=== PATIENT | female | born 1980 | race American Indian/Alaskan Native ===

== ENCOUNTER 2019-09-20 19:44 | Inpatient (IN) | payer OTHER ==
[~2019-09-20] VITALS: Ht 157.5 cm; Wt 97.8 kg
[2019-09-20 20:18] LABS: BASOPHILS ABSOLUTE AUTO 0.05 K/mm3 (0.00-0.23); BASOPHILS PERCENT AUTO 1 % (0-2); EOSINOPHILS ABSOLUTE AUTO 0.25 K/mm3 (0.00-0.68); EOSINOPHILS PERCENT AUTO 3 % (0-6); Hematocrit 39.8 % (33.0-51.0); Hemoglobin 12.9 g/dL (11.5-16.0); IMMATURE GRAN PERCENT AUTO 0 % (0-1); LYMPHOCYTES ABSOLUTE AUTO 2.66 K/mm3 (0.84-5.20); LYMPHOCYTES PERCENT AUTO 36 % (21-46); MONOCYTES ABSOLUTE AUTO 0.57 K/mm3 (0.16-1.47); MONOCYTES PERCENT AUTO 8 % (4-13); Mean Corpuscular HGB 28.2 pg (26.0-34.0); Mean Corpuscular HGB Conc 32.4 g/dL (31.5-36.5); Mean Corpuscular Volume 87 fL (80-100); Mean Platelet Volume 10.5 fL (9.1-12.4); NEUTROPHILS ABSOLUTE AUTO 3.86 K/mm3 (1.96-9.15); NEUTROPHILS PERCENT AUTO 52 % (41-73); Platelet Count 230 K/mm3 (150-400); RDW Coefficient Variation 14.6 % (11.7-14.2); RDW Standard Deviation 46.7 fL (35.1-46.3); Red Blood Cell Count 4.57 M/mm3 (3.80-5.20); White Blood Cell Count 7.39 K/mm3 (4.00-11.30)
[2019-09-20 20:41] LABS: Alanine Aminotransfer (ALT/SGP 38 U/L (12-78); Albumin, Blood 3.8 g/dL (3.4-5.0); Alk Phos 68 U/L (50-136); Anion Gap 8 mmol/L (6-16); Aspartate Aminotrans (AST/SGOT 21 U/L (12-37); Bilirubin, Total 0.4 mg/dL (0.1-1.0); Blood Urea Nitrogen 11 mg/dL (8-24); Bun/Creatinine Ratio 13.7 (12.0-20.0); CO2, Blood 22 mmol/L (21-32); Calcium, Blood 8.7 mg/dL (8.5-10.1); Chloride, Blood 109 mmol/L (98-108); Globulin, Blood 3.8 g/dL (2.2-4.0); Glomerular Filtration Rate >60 (60-); Glucose, Blood 121 mg/dL (70-99); Potassium, Blood 3.6 mmol/L (3.5-5.5); Sodium, Blood 139 mmol/L (136-145); Total Protein, Blood 7.6 g/dL (6.4-8.2); Troponin I 0.071 ng/mL (0.000-0.040)
[2019-09-20] MEDS ORDERED: NITR.4SL SL (21:28)
[2019-09-20] MEDS ORDERED: ASPI81CH PO (21:28)
[2019-09-20] MEDS ORDERED: METO50 PO (21:30)
[2019-09-20] MEDS ORDERED: AMLODIPINE BESY10 MG PO (21:30)
[2019-09-20] MEDS ORDERED: ATOR10 PO (21:30)
[2019-09-20] MEDS ORDERED: LISI20 PO (21:30)
[2019-09-20 23:19] LABS: International Normalized Ratio 0.92; Prothrombin Time Results 9.8 Sec (9.7-11.5)
--- NOTE | 2019-09-21 01:08 | NUR ---
CHEST PAIN PATIENT REPORTS HER CHEST PAIN IS DOWN TO 3/10 FROM 08/11. EKG OBTAINED WITH 08/11 CHEST PAIN AND STAT TROP SENT TO LAB. PATIENT DENIES ANY FURTHER NEEDS AT THIS TIME. WILL CONTINUE TO MONITOR.
--- NOTE | 2019-09-21 02:00 | NUR ---
BNETLEY FERNANDO IN TO ASSESS PT. SHE HAS DECIDED TO TRANSFER PT TO ICU AT THIS TIME. PT REPORTS CP 3/10 THAT WORSENS WITH RESPIRATIONS & COUGHING. VSS. PT WILL BE STARTED ON A NITRO & HEPERIN DRIP.
--- NOTE | 2019-09-21 02:25 | NUR ---
PT ARRIVES TO ICU ROOM 6 VIA WHEELCHAIR FROM PCU. PT STANDS TO TRANSFER TO BED WITH STEADY GAIT, DENIES N/V, ADMITS TO 3/10 SHARP BURNING ACHING PAIN JUST TO THE LEFT OF HER STERNUM AT THE LEVEL OF THE 3-4TH INTERCOSTAL SPACE WHICH SHE STATES RADIATES UP TO HER LEFT SHOULDER AND THROUGH TO HER BACK. WHEN COMPARED TO PRIOR [place] THIS PAIN IS MORE SHARP IN NATURE, PT REPORTS THAT THIS PAIN HAS BEEN HIGH 12/10 AND THAT HER CURRENT PAIN RATING IS THE BEST CONTROL SHE HAS HAD SINCE ONSET. SHE STATES THAT THERE IS ASSOCIATED SOB/DYSPNEA AND THAT HER LEFT HAND/ARM TINGLES WITH INCREASES IN PAIN. SHE DOES STATE THAT HEAT APPLICATION HAS HELPED CONTROL HER PAIN AND THAT "EVERYTHING" SEEMS TO CAUSE INCREASES IN PAIN. HEART RATE IS REGULAR, SINUS MARC NOTED ON MONITOR, RATE IN THE 50S, PRESSURE IS MAINTAINING, ORDERS NOTED FOR NITRO GTT WELL HEPARIN GTT, PROBABLE NSTEMI PER HOSPITALIST NOTES ON CHART, SKIN IS PWD, CAP REFILL IS BRISK, NO EDEMA IS NOTED, PULSES ARE FULL X 4. ABD WITH ACTIVE BOWEL TONES X 4 QUADRANTS, NO GRIMACING OR GUARDING WITH PALPATION. WILL MONITOR.
--- NOTE | 2019-09-21 02:29 | NUR ---
PT TRANSFERRED TO ICU VIA W/C. REPORT CALLED TO YESICA SCHULTZ. PT IS A&O X4,REPORTS CP 12/12, VSS, ON ROOM AIR, DENIES SOB, PT'S BELONGINGS SENT WITH SIGNIFICANT OTHER. SIGNIFIANT OTHER AT HER SIDE.
--- NOTE | 2019-09-21 06:00 | NUR ---
PT TRANSFERRED TO ICU 6 FROM PCU FOR CHEST PAIN WITH INCREASE IN TROPONIN LEVEL, PER HOSPITALIST NOTE, DX LIKELY NSTEMI. PT CHEST PAIN HAS IMPROVED WITH NITRO GTT TO 11/11, HRR, SINUS MARC IN THE 50S CONTINUES, SHE DENIES N/V BUT DOES STATE THAT THERE IS SOME ASSOCIATED SOB/DYSPNEA AND NUMBNESS/TINGLING WITH THE CHEST PAIN. VITAL SIGNS REMAIN STABLE. HEPARIN GTT INITIATED PER PHARMACY, PT TOLERATING WELL. SHE APPEARS TO BE SLEEPING AT THIS TIME, RESP EVEN AND REGULAR.
[2019-09-21 07:01] LABS: CHOL/HDL RATIO 4.7; Cholesterol 142 mg/dL (50-200); HDL Cholesterol 30 mg/dL (>39); LDL/HDL RATIO 2.7; Low Density Lipoprotein Chol 80 mg/dL (0-110); Triglycerides 159 mg/dL (30-140); Very Low Density Lipoprot Chol 31 mg/dL (6-28)
--- NOTE | 2019-09-21 08:19 | NUR ---
Recieved report from Ashleigh SCHULTZ. Patient restin g in bed at report time on 2L O2 and sats 97%. Echo came and did ECHO and Dr Quijano was by and stated she would return after Echo. Patient up with SBA with lines and wires, she is stable with transfer. She states chest pain 01/09 and reduced Nitro gtt from 20mcg/min to 15mcg/min, systolic 139 MAP >65. Her nitro paste remains per order. She has 20ga RH dressing intact and site WNL's and infusing Heparin at 13 units/kg/hr. She also has 20ga RAC dressing intact and site WNL's. Family sleepin at bedside.
--- NOTE | 2019-09-21 08:42 | NUR ---
Echocardiogram completed.
--- NOTE | 2019-09-21 10:00 | NUR ---
Dr Quijano came back to see patient and wanted stat CT Angio. Patient tolerated well. She tolerated am meds well. She remains on 15 mcg/min nitro gtt and 13 units/kg/hr of heparin. She is on 2L O2 and sats 97. she has been trying to rest. Plan to manager cardiac cath.
--- NOTE | 2019-09-21 11:38 | NUR ---
Heparin bolus 3000 units and gtt increased to 15 units/kg/hr. She is sleeping.
--- NOTE | 2019-09-21 11:49 | NUR ---
[facility] staff just came and took patient to lab via ICU bed.
--- NOTE | 2019-09-21 14:15 | NUR ---
Patient returned from [facility] with TR band site on right wrist. Took support off and site soft palpable and no swelling or hematoma. After arrived she was up with assist to bathroom. She has been instructed no weight bearing or bending right wrist. VSS. She returned with Heparin gtt off and Nitro gtt at 15mcg/min. She is alert and oriented and able to communicate her needs. She tolerated a sandwich and soda.
--- NOTE | 2019-09-21 17:09 | NUR ---
Weaned nitro gtt to 5mcg/min and have released 5cc of air from TR band. Site C/D/I and no oozing , blood or hematoma. VSS. She is sitting up in bed playing with phone and significant other at bedside. She denies any chest pain or discomfort.
--- NOTE | 2019-09-21 19:35 | NUR ---
ASSESSMENT/ASSUMED CARE PT SITTING UP IN BED WATCHING TV WITH FRIEND. DENIES PAIN AT THIS TIME. STATES,"I HAVE A LITTLE BUBBLE HERE" PT POINTS TO EPIGASTRIC AREA. NO RADATION TO NECK, CHEST OR ARM. HEART RATE REGULAR IN THE 60'S. BP STABLE. RIGHT WRIST WITH ARM BOARD ON. TR SITE WITH BANDAID. NO BLEEDING OR HEMATOMA NOTED. INSTRUCTED PT NO TO USE RIGHT ARM. REPLACED ARM BOARD AFTER ASSESSMENT. PT REPORTS NUMBNESS TO MIDDLE TWO FINGERS TO RIGHT HAND OFF AND ON. NO PEDAL EDEMA. BT+ ABD SOFT AND NONTENDER. DENIES N/V. IV 20G TO RIGHT HAND AND 20G TO RIGHT AC SALINE LOCKED, BOTH SITES CLEAR AND FLUSHED WITHOUT DIFFICULTY.
--- NOTE | 2019-09-21 20:32 | NUR ---
HS MEDS PT UP AD JAYLENE IN THE ROOM. HS MEDS GIVEN. TALKED WITH PT ABOUT SMOKING AND STENTS.
--- NOTE | 2019-09-21 23:58 | NUR ---
REASSESSMENT PT SLEEPING ON RIGHT SIDE. VSS. RIGHT WRIST TR SITE STABLE. ARM BOARD ON. FRIEND SLEEPING IN THE ROOM
[2019-09-22 04:35] LABS: BASOPHILS ABSOLUTE AUTO 0.04 K/mm3 (0.00-0.23); BASOPHILS PERCENT AUTO 0 % (0-2); EOSINOPHILS PERCENT AUTO 2 % (0-6); Hemoglobin 12.1 g/dL (11.5-16.0); IMMATURE GRAN ABSOLUTE AUTO 0.02 K/mm3 (0.00-0.10); IMMATURE GRAN PERCENT AUTO 0 % (0-1); LYMPHOCYTES ABSOLUTE AUTO 1.85 K/mm3 (0.84-5.20); LYMPHOCYTES PERCENT AUTO 20 % (21-46); MONOCYTES ABSOLUTE AUTO 0.67 K/mm3 (0.16-1.47); MONOCYTES PERCENT AUTO 7 % (4-13); Mean Corpuscular HGB 27.8 pg (26.0-34.0); Mean Corpuscular HGB Conc 31.8 g/dL (31.5-36.5); Mean Corpuscular Volume 87 fL (80-100); Mean Platelet Volume 10.4 fL (9.1-12.4); NEUTROPHILS ABSOLUTE AUTO 6.39 K/mm3 (1.96-9.15); NEUTROPHILS PERCENT AUTO 70 % (41-73); Platelet Count 205 K/mm3 (150-400); RDW Coefficient Variation 14.6 % (11.7-14.2); RDW Standard Deviation 47.1 fL (35.1-46.3); Red Blood Cell Count 4.35 M/mm3 (3.80-5.20); White Blood Cell Count 9.17 K/mm3 (4.00-11.30)
[2019-09-22 04:50] LABS: Anion Gap 5 mmol/L (6-16); Blood Urea Nitrogen 8 mg/dL (8-24); Bun/Creatinine Ratio 10.3 (12.0-20.0); CO2, Blood 24 mmol/L (21-32); Calcium, Blood 8.7 mg/dL (8.5-10.1); Chloride, Blood 112 mmol/L (98-108); Creatinine, Blood 0.78 mg/dL (0.40-1.00); Glomerular Filtration Rate >60 (60-); Glucose, Blood 101 mg/dL (70-99); Potassium, Blood 4.1 mmol/L (3.5-5.5); Sodium, Blood 141 mmol/L (136-145)
--- NOTE | 2019-09-22 06:08 | NUR ---
SHIFT SUMMARY PT RESTED QUIETLY DURING THE NIGHT. HAS DENIED PAIN OF ANY KIND THROUGHOUT THE NIGHT. UP AD JAYLENE TO BATHROOM. TURNING AND MOVING SELF IN BED. VSS. RIGHT WRIST TR SITE WITH BANDAID ON. NO BLEEDING OR HEMATOMA. ARM BOARD ON. TALKED WITH PT ABOUT STOPPING SMOKING AND WHAT KIND OF DAMAGE IT CAN CAUSE HER STENTS. ALSO, TALKED WITH PT ABOUT LEAVING THE ARM BOARD ON RIGHT WRIST AND TREATING LIKE A BROKEN ARM FOR THE NEXT FEW DAYS. REPORT TO ON COMING NURSE
--- NOTE | 2019-09-22 07:35 | NUR ---
DR. MEHTA AT BEDSIDE. WILL START BRILINA WITH PO BOLUS DOSE THIS MORNING. PLAN IS FOR DISCHARGE LATER TODAY.
[2019-09-22] MEDS ORDERED: TICA90TA PO (11:44)
== END 2019-09-22 12:05 | disposition home or self-care (01) | DRG 247 ==
LOC: ER 19:44 → PCU 19:45 → ICUE 09-21 02:14
PROVIDERS: Internal Medicine Cardiovascular Disease; Nurse Practitioner Acute Care; Physician Assistant; ADMIT Hospitalist
PROC: 027034Z Dilation of Coronary Artery, One Artery with Drug-eluting Intraluminal Device, Percutaneous Approach (ICD-10-PCS; principal; 2019-09-21)
PROC: B240ZZ3 Ultrasonography of Single Coronary Artery, Intravascular (ICD-10-PCS; 2019-09-21)
PROC: 4A023N7 Measurement of Cardiac Sampling and Pressure, Left Heart, Percutaneous Approach (ICD-10-PCS; 2019-09-21)
PROC: B2111ZZ Fluoroscopy of Multiple Coronary Arteries using Low Osmolar Contrast (ICD-10-PCS; 2019-09-21)
DX: I21.02 ST elevation (STEMI) myocardial infarction involving left anterior descending coronary artery (principal); J44.9 Chronic obstructive pulmonary disease, unspecified; E66.9 Obesity, unspecified; I10 Essential (primary) hypertension; I25.10 Atherosclerotic heart disease of native coronary artery without angina pectoris; Z95.5 Presence of coronary angioplasty implant and graft; F17.210 Nicotine dependence, cigarettes, uncomplicated; E78.5 Hyperlipidemia, unspecified; Z68.38 Body mass index [BMI] 38.0-38.9, adult
CPT/HCPCS: 36415; 71046; 71275; 76937; 80048; 80053; 80061; 84443; 84484; 85025; 85347; 85610; 85730; 92978; 93005; 93010; 93306; 93458; 96372; 96374; 99152; 99153; 99285-25; C1725; C1753; C1769; C1874; C1887; C1894; C9600; G0378; J1170; J1644; J1650; J2250; J3010; J7030; Q9967